=== PATIENT | female | born 1985 | race Caucasian/White ===

== ENCOUNTER 2023-07-16 20:36 | Emergency (ER) | payer BC, SELFPAY ==
--- NOTE | 2023-07-16 21:08 | ED.GENADUL_ITS ---
HPI General Mode of arrival: EMS . Date/Time Provider Initiated Documentation: 07/16/23 20:38 . Limitations to Documentation: no limitations . Information obtained by: patient . History of Present Illness 37 year old F presents to the emergency department with the chief complaint of n/v, described as moderate, Patient started experiencing this day(s) (1) and it has been intermittent. No relieving factors improve symptom(s), No exacerbating factors reported . Patient notes denies chest pain and shortness of breath. Patient did receive the following treatments prior to arrival, none Related Data Home Medications Medication Instructions Recorded Confirmed fluoxetine 40 mg capsule (Prozac) 40 mg PO .every other day 07/16/23 07/16/23 ondansetron 4 mg disintegrating 4 mg PO Q8H PRN nausea and 07/16/23 tablet vomiting #30 tabs Previous Rx's Medication Instructions Recorded ondansetron 4 mg disintegrating 4 mg PO Q8H PRN nausea and 07/16/23 tablet vomiting #30 tabs Allergies Allergy/AdvReac Type Severity Reaction Status Date / Time No Known Allergies Allergy Unverified 07/16/23 20:39 General Stated Complaint: Abd Prob ELIZABETH: 3 Review of Systems All systems reviewed & are unremarkable except as noted in HPI and below Constitutional Constitutional: Denies chills, Denies fever(s) and Denies weakness Cardiovascular Cardiovascular: Denies chest pain and Denies dyspnea Respiratory Respiratory: Denies cough and Denies dyspnea Gastrointestinal Gastrointestinal: Reports nausea and Reports vomiting Musculoskeletal Musculoskeletal: Denies joint swelling Neurologic Neurologic: Denies weakness Psychiatric Psychiatric: Denies depression Exam Const General: no acute distress Orientation: alert HENMT Head: normal to inspection Ears: external ears normal General nose exam: external nose normal Mouth: moist mucous membranes Eyes General: appearance normal, both eyes and all related structures Neck Neck: normal visual inspection Resp Effort & Inspection: normal respiratory effort and able to speak in complete sentences Cardio Jugular venous pressure: no JVD Rate: regular rate Heart Sounds: no murmurs GI Palpation: soft, not firm and no guarding Back/Spine/Pelvis Back: no CVA tenderness Skin General skin exam: no rashes or lesions noted Neuro General: patient alert and patient oriented x3 Extrem General: normal to inspection Psych Mental Status: mental status grossly normal Medical Decision Making 37 yo female with hx of anxiety comes in with n/v since yesterday. She has epigastric discomfort when she vomits but none when she is not vomiting. She said this has happened in the past and was told it was anxiety. She has no chest pain or dyspnea. She is caox4 intermittently dry heaving loudly into a emesis bag. She has clear lungs, soft nontender abdomen, does appear anxious. Will treat with ativan and compazine as she was given zofran with ems with minimal relief and obtain cbc, cmp, lipase, hcg and reassess. Do not feel ct indicated at this time given lack of pain and tenderness but will reassess. pt feeling much better, tolerating po and has no symptoms, mag is 1.3. She is requesting d/c, will have her increase oral magnesium dietary intake. She will f/u with her pcp, return precautions given. No abdominal tenderness on repeat exam Differential Diagnosis Differential Diagnosis: gastroenteritis, cyclic comiting, electrolyte abnormalities Quality:SDOH Health Related Social Needs: Health related social needs risk of homeless PFSH All Active Problems (Updated 07/16/23 @ 21:49 by Sabino Gray MD) Nausea & vomiting (Acute) Social History Smoking risk assessment performed?: No Discharge Plan Disposition Patient Disposition: Home Condition: Stable Discharge Details Clinical Impression: Nausea & vomiting ED Provider: Sabino Gray Home Meds and New Rx's Prescriptions: New ondansetron 4 mg tablet,disintegrating 4 mg PO Q8H PRN (Reason: nausea and vomiting) Qty: 30 0RF Continued fluoxetine [Prozac] 40 mg capsule 40 mg PO .every other day Discharge Instructions Instructions: Acute Nausea and Vomiting (ED) Additional Instructions: if symptoms persist follow up with your primary care provider return to the emergency department if you feel more ill, have severe abdominal pain or persistent vomiting
[2023-07-16] MEDS: LORazepam 2 MG/ML VIAL 1 MG IVP (21:24)
[2023-07-16] MEDS: Normal Saline 1,000 ML 1000 ML IV (21:24)
[2023-07-16] MEDS: Normal Saline 50 ML 200 ML (21:25)
[2023-07-16] MEDS: Prochlorperazine 10 MG/2 ML VIAL IVP (21:26)
[2023-07-16 21:27] LABS: Abs Immature Grans 0.12 10^3/uL (0.0-0.06); Absolute Basophil Count 0.07 10^3/uL (0.0-0.2); Absolute Eosinophil Count 0.02 10^3/uL (0.0-0.7); Absolute Lymphocyte Count 0.25 10^3/uL (1.2-3.4); Absolute Monocyte Count 0.95 10^3/uL (0.1-0.8); Absolute Neutrophil Count 16.27 10^3/uL (1.2-6.7); Basophils % 0.4; Eosinophils % 0.1; HCT 40.4 % (36.0-46.0); HGB 14.3 g/dL (11.2-15.7); Immature Grans % 0.7; Lymphocytes % 1.4; MCH 30.4 pg (27.0-33.0); MCHC 35.4 % (32.0-36.0); MCV 86 fL (80-95); Monocytes % 5.4; Platelet Count 303 10^3/uL (130-400); RBC 4.71 10^6/uL (3.93-5.22); RDW 11.5 % (11.7-14.6); RDW-SD 36.2 fL; WBC 17.68 10^3/uL (4.4-10.8)
[2023-07-16 21:47] LABS: ALT 36 U/L (14-59); AST 32 U/L (15-37); Albumin 4.4 g/dL (3.4-5.0); Alkaline Phosphatase 69 U/L (46-116); Anion Gap 18.5 mmol/L (3-11); BUN 23 mg/dL (7-18); Bilirubin, Total 1.7 mg/dL (0.2-1.0); CO2 20.5 mmol/L (21.0-32.0); CREATININE 1.3 mg/dL (0.55-1.02); Calcium 9.9 mg/dL (8.5-10.1); Chloride 102 mmol/L (98-107); Estimated GFR 54.31 (mL/min/1.73m2); Glucose 173 mg/dL (74-106); Lipase 23 U/L (16-77); Magnesium 1.3 mg/dL (1.8-2.4); Potassium 3.6 mmol/L (3.5-5.1); Sodium 141 mmol/L (136-145); Total Protein 7.9 g/dL (6.4-8.2)
[2023-07-16 21:49] LABS: HCG Qual (Serum) Negative
[2023-07-16 22:23] LABS: COVID-19 PCR Negative (Negative); Influenza A PCR Negative (Negative); Influenza B PCR Negative (Negative); RSV PCR Negative (Negative)
[2023-07-16 22:24] LABS: Source NASOPHARYNX
[2023-07-16] MEDS: Ondansetron O.D.T. 4 MG TABEF, 3 TABS/BTL PO (22:24)
== END 2023-07-16 22:32 | disposition home or self-care (01) ==
PROVIDERS: Emergency Provider Emergency Medicine
DX: R11.2 Nausea with vomiting, unspecified (principal); R19.7 Diarrhea, unspecified; R10.13 Epigastric pain; Z11.52 Encounter for screening for COVID-19
CPT/HCPCS: 80053; 83690; 87637; 99283; 83735; 84703; 85025; J0780; J2060